=== PATIENT | female | born 1980 | race Caucasian/White ===

== ENCOUNTER 2019-10-19 11:48 | Observation (INO) ==
[2019-10-19] MEDS ORDERED: ONDANSETRON INJ 2 MG/ML 2 ML VIAL ONE (12:56)
[2019-10-19 13:00] LABS: Basophils # (auto) 0.03 K/uL (0-0.2); Basophils % (auto) 0.2 %; Eosinophils # (auto) 0.13 K/uL (0-0.5); Eosinophils % (auto) 1.1 %; Hematocrit (blood only) 41.3 % (37-47); Hemoglobin 13.9 g/dL (12.0-16.0); Immature Granulocytes # (auto) 0.03 K/uL (0.00-0.02); Immature Granulocytes % (auto) 0.2 %; Lymphocytes # (auto) 2.24 K/uL (1.2-3.4); Lymphocytes % (auto) 18.6 %; Mean Corpuscular Hemoglobin 29.6 pg (25-34); Mean Corpuscular Hgb Conc 33.7 g/dL (32-36); Mean Corpuscular Volume 87.9 fL (80-100); Mean Platelet Volume 9.3 fL (7.4-10.4); Monocytes # (auto) 0.83 K/uL (0.11-0.59); Monocytes % (auto) 6.9 %; Neutrophils # (auto) 8.76 K/uL (1.4-6.5); Platelet Count 298 K/uL (130-400); RDW Coefficient of Variation 12.3 % (11.5-14.5); RDW Standard Deviation 39.4 fL (36.4-46.3); White Blood Count 12.02 K/uL (4.8-10.8)
[2019-10-19 13:08] LABS: Appearance Urine Clear (Clear); Bilirubin Urine Negative (Negative); Blood Urine Negative (Negative); Color Urine Dark Yellow; Glucose Urine UA Negative (Negative); Ketones Urine Negative (Negative); Leukocyte Esterase Urine Negative (Negative); Nitrite Urine Negative (Negative); Protein Urine Negative (Negative); Specific Gravity Urine 1.019 (1.000-1.030); Urobilinogen Urine Negative (Negative)
[2019-10-19 13:11] LABS: Partial Thromboplastin Ratio 0.9; Partial Thromboplastin Time 23.5 Seconds (21.0-31.0); Prothrombin Time 10.3 Seconds (9.0-12.0)
[2019-10-19 13:16] LABS: Albumin Level 4.1 gm/dl (3.4-5.0); BUN Creatinine Ratio 13.5 (10-20); Calcium 9.5 mg/dl (8.5-10.1); Creatinine Clr Calc Pharmacy 94.9 ml/min; Est GFR (African American) 110.2; Est GFR (Non-African American) 95.1; Potassium 3.8 mmol/L (3.5-5.1)
[2019-10-19 13:21] LABS: Albumin Globulin Ratio 1.1 (0.9-2); Globulin 3.8 gm/dl (2.5-4.0); Total Protein 7.9 gm/dl (6.4-8.2); Troponin I 0.026 ng/ml (0-0.045)
--- NOTE | 2019-10-19 13:32 | Ultrasound Report ---
LEFT LOWER EXTREMITY VENOUS DOPPLER CLINICAL HISTORY: Left lower extremity pain. History of ablation/sclerotherapy. COMPARISON STUDY: No previous studies for comparison. TECHNIQUE: Sonography of the deep venous system of the left lower extremity was performed. Compressi on and augmentation were evaluated. FINDINGS: The left common femoral, superficial femoral and popliteal veins were compressible. Augmen tation was normal. Flow was shown within the deep calf vessels. Note is made of a thrombosed superfic ial vein within the left calf. IMPRESSION: 1. No evidence of deep venous thrombus within the left lower extremity. 2. Thrombosed superficial vein within the left calf which is likely postprocedural. ACT 112: Negative or not required by law. Electronically signed by: Alistair Owens M.D. 10/19/2019 1:30 PM
[2019-10-19] MEDS ORDERED: IOVERSOL 100ml IV PRN (13:36)
--- NOTE | 2019-10-19 13:47 | CT Scan Report ---
CT ANGIOGRAPHY OF THE CHEST, PULMONARY EMBOLUS PROTOCOL CLINICAL HISTORY: Back pain. Chest tightness. Evaluate for pulmonary embolus. COMPARISON STUDY: No previous studies for comparison. TECHNIQUE: Following IV administration of 83 mL of Optiray-320, helical axial images of the chest wer e obtained utilizing the pulmonary embolus protocol. Maximal intensity projections and sagittal and coronal reformats were viewed on an independent 3D workstation. IV contrast was administered without complication. Automated exposure control was utilized for the study. A dose lowering technique was utilized adhering to the principles of ALARA. CT DOSE: 315.67 mGy.cm FINDINGS: No pulmonary emboli are identified. There is no thoracic aortic dissection. The size of th e heart is normal. There is no pericardial effusion. No enlarged thoracic lymph nodes are noted. Cent ral airways are patent. No pneumothorax or pleural effusion is noted. There are no pulmonary nodules. Mild subpleural groundglass opacities represent atelectasis. Bony thorax is unremarkable. Gallbladde r is surgically absent. Upper abdomen is unremarkable. IMPRESSION: 1. No pulmonary emboli identified. 2. No acute findings within the chest. ACT 112: Negative or not required by law. Electronically signed by: Alistair Owens M.D. 10/19/2019 1:46 PM
[2019-10-19] MEDS ORDERED: ASPIRIN 81 MG CHEW PO STA (13:56)
[2019-10-19] MEDS ORDERED: NITROGLYCERIN 2% OINTMENT 30GM TUBE EXT ONE (13:56)
--- NOTE | 2019-10-19 15:13 | XRay Report ---
XR shoulder LT min 2V routine, XR shoulder RT min 2V routine CLINICAL HISTORY: pain with movements COMPARISON STUDY: None. FINDINGS: No fracture or dislocation. The clavicles are intact. Soft tissues are unremarkable. Mild j oint space narrowing at the right acromioclavicular joint. The left AC joint is well aligned. IMPRESSION: 1. No fractures within the right or left shoulder. 2. Mild joint space narrowing at the right acromioclavicular joint. This favors mild degenerative fausto nge. ACT 112: Negative or not required by law. Electronically signed by: Mario German M.D. 10/19/2019 3:12 PM
--- NOTE | 2019-10-19 15:14 | XRay Report ---
XR cervical spine 2 or 3V CLINICAL HISTORY: 39 years-old Female presenting with right shoulder pain, neck pain, numbness travel ing radiating down the left arm. TECHNIQUE: Lateral, frontal, and open mouth odontoid views of the cervical spine were obtained. COMPARISON: None. FINDINGS: Straightening of normal cervical lordosis. Vertebral bodies maintain normal height and alignment. The C7 vertebral body is fully visualized. Mild intervertebral disc height loss at C6-7, where there is a disc osteophyte complex with mild posterior spondylitic spurring. Normal predental interval. No rad iographic evidence of fracture or subluxation. No prevertebral soft tissue swelling. No significant u ncovertebral hypertrophy. Lateral masses of C1 articulate normally with C2. The dens is grossly intac t. IMPRESSION: 1. Focal degenerative changes at C6-7. 2. No radiographic evidence of acute osseous injury. ACT 112: Negative or not required by law. Electronically signed by: Gurpreet Ansari M.D. 10/19/2019 3:12 PM
[2019-10-19 15:25] LABS: C Reactive Protein < 0.29 mg/dl (0-0.29); NT Pro B Type Natriuretic Pept 48 pg/ml (0-450)
--- NOTE | 2019-10-19 15:25 | History & Physical Report ---
Date of Service October 19, 2019 Assessment & Plan (1) Chest pain: Admit to PCU on telemetry for observation. Vital signs every 4 hours Troponins x3 with EKG to rule out acute coronary syndrome. BNP, TSH, magnesium pending. Replenish electrolytes DVT prophylaxis Lovenox 40 mg subcu 2 daily Full code (2) Osteoarthritis: Cannot exclude osteoarthritis of the neck versus right versus left shoulder as a cause of pain. Spondylosis of the spine cannot be excluded. 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 Less likely carpal tunnel syndrome. X-rays of the neck, right shoulder left shoulder pending. CRP pending Pain management with Toradol 15mg IV every 6 hours as needed for pain. Percocet 5/325 mg every 4 hours as needed for pain. Baclofen 10 mg 3 times daily as needed for muscle spasm. Present on Admission?: Yes (3) Hypertension: Blood pressure is well controlled in the ER. Continue home medicine amlodipine 5 mg p.o. every afternoon, Bystolic 10 mg p.o. every afternoon. Continue monitoring every 4 hours Present on Admission?: Yes (4) Hyperlipidemia: Lipid panel pending. Continue home dose of atorvastatin 40 mg p.o. every afternoon. Present on Admission?: Yes (5) Obesity (BMI 30.0-34.9): Patient advised to lose at least 32 pounds pounds in order to be below overweight line for her BMI. Patient advised to start healthy diet, exercises, dietary consulted, should join groups or weight watchers to help her to control her weight and to lose some. Present on Admission?: Yes (6) Varicose vein of leg: Appears to be stable at this time. No intervention needed. Present on Admission?: Yes (7) Metabolic syndrome: As discussed above. A1c and lipid panel pending. Present on Admission?: Yes (8) Anxiety: Appears to be stable. Continue home dose of escitalopram 10 mg p.o. daily, bupropion 300 mg p.o. daily. Present on Admission?: Yes History of Present Illness Chief Complaint: Atypical chest pain Primary Care Provider: NO PCP Patient is a 39 years old female with a past medical history of hypertension, hyperlipidemia, anxiety who presents to the emergency room with a complaint of chest pain that woke her up from sleep last night and it started at her right shoulder extended to her left shoulder and then ended up between 2 blades and her left hand was numb. Patient said that pain was worsening and continued for 30 minutes. Patient said pain recovered and she felt fine after that. Patient did not try anything to relieve her pain. This morning patient came to the emergency room to be checked. Patient reports that she had thrombosis palliative therapy of the superficial veins of the left lower extremity approximately 1 week ago and she was worried that this could be associated with it. Patient reports tolerating procedure well. She reports some bruising of the left lower extremities at the medial aspect. Patient denies fever, chills, abdominal pain, frequency, urgency, hematuria, dysuria, syncope or near syncope. Labs are reviewed: WBC is 12.02, hemoglobin 13.9, hematocrit 41.3, platelets 298. PT 10.3, INR 1, APTT 23.5, sodium 140, potassium 3.8, chloride 108, BUN 11, creatinine 0.78, GFR 95.1, calcium 9.5 AST 15, ALT 42 troponin 0.026, urine analysis negative, urine test negative. Her CTA of the chest: No pulmonary emboli identified, no acute findings within the chest, no pericardial effusion, no pulmonary nodules. Mild subpleural groundglass opacity may represent atelectasis. DVT ultrasound shows no evidence of deep venous thrombosis DVT in the left lower extremity. Thrombosed superficial veins within the left calf which is likely postsurgical. Decision was made to admit patient for observation at PCU on telemetry and further evaluation of acute versus atypical chest pain versus acute coronary syndrome. Allergies Allergy/AdvReac Type Severity Reaction Status Date / Time No Known Allergies Allergy Unverified 10/19/19 14:06 Home Medications Home Medications Medication Instructions Recorded Confirmed Type amlodipine 5 mg PO QPM 10/19/19 10/19/19 History atorvastatin 40 mg PO QPM 10/19/19 10/19/19 History bupropion HCl 300 mg PO DAILY 10/19/19 10/19/19 History cyanocobalamin (vitamin B-12) 1,000 mcg IM MONTHLY 10/19/19 10/19/19 History escitalopram oxalate 10 mg PO DAILY 10/19/19 10/19/19 History ibuprofen [Advil] 400 mg PO Q6H PRN 10/19/19 10/19/19 History nebivolol [Bystolic] 10 mg PO QPM 10/19/19 10/19/19 History Past Med/Surg History Medical History Anxiety Varicose vein of leg Family History Father Coronary heart disease Social History Preferred Language: Turkmen Communication Ability: Effective Manager Strategic Required: No Beliefs That Will Affect Care: None Current Living Situation: Spouse Other Information That Helps Us Care for You: No Feels Safe at Home: Yes Safety Concerns: Feels Safe At This Time Smoking Status: Never smoker Do You Dip or Chew Tobacco: No ; Second Hand Exposure: No ; Tobacco Cessation Education Requested by Patient: No Hx Alcohol Use: Yes Hx Substance Use: No Review of Systems Review of Systems: All systems reviewed & are unremarkable except as noted in HPI & below Physical Exam Constitutional: WD/WN, vitals as above well developed and + obese Eyes: PERRL, conjunctivae normal, anicteric sclerae ENMT: external ear and nose normal, oropharynx normal Neck: trachea midline, no thyromegaly Positive tenderness and pain over the right trapezius. Patient has painful trigger points bilateral left and right down to the neck more pronounced on the right. Respiratory: normal respiratory effort, lungs clear to auscultation Cardiovascular: RRR, no murmur, no edema Gastrointestinal (Abdomen): normal bowel sounds, soft, nontender, no hepatosplenomegaly Musculoskeletal: no cyanosis or clubbing, extremities motor strength 5/5 Patient has trigger points especially right side and the back of the neck. Skin: no rashes, warm and dry Bruising over the left lower extremity below the calf on the medial side where patient had sclerotherapy. Neurologic: patellar DTR's 2+ bilat, sensation intact Psychiatric: A+Ox3, euthymic affect Lymphatic: no cervical or axillary lymphadenopathy Results & Data Vital Signs (Past 12 Hours) Vital Signs Temp Pulse Resp BP Pulse Ox 10/19/19 14:31 61 19 94 10/19/19 14:30 60 12 118/82 94 10/19/19 14:01 71 25 H 97 10/19/19 14:00 72 20 126/76 97 12/20/19 13:38 77 15 10/19/19 12:49 66 17 124/79 96 10/19/19 12:30 74 20 10/19/19 12:29 88 30 H 10/19/19 12:21 81 17 124/71 97 10/19/19 12:18 99 10/19/19 12:05 36.7 C 70 20 141/92 H 98 Code Status & VTE Plan Code Status Full code VTE Prophylaxis Plan VTE Prophylaxis will be ordered: Yes PG Care Time/CCT Total # of Minutes Spent Total Time Spent with Patient: Total time spent is greater than 50% in coordination of care (as documented) at patient's floor/unit and/or counseling patient:
[2019-10-19] MEDS ORDERED: ALUMINUM/MAGNESIUM SUSP 30 ML UDC PO PRN (15:36)
[2019-10-19] MEDS ORDERED: OXYCODONE/ACETAMINOPHEN 5mg/325mg TAB PO PRN (15:36)
[2019-10-19] MEDS ORDERED: POLYETHYLENE (MIRALAX) 17 GM PACK PO PRN (15:36)
[2019-10-19] MEDS ORDERED: KETOROLAC TROMETHAMINE 15 MG/ML VIAL IV PRN (15:36)
[2019-10-19] MEDS ORDERED: ACETAMINOPHEN 325 MG TAB PO PRN (15:36)
[2019-10-19] MEDS ORDERED: ONDANSETRON INJ 2 MG/ML 2 ML VIAL IV PRN (15:36)
[2019-10-19] MEDS ORDERED: BACLOFEN 10 MG TAB PO PRN (15:36)
[2019-10-19] MEDS ORDERED: MAGNESIUM HYDROXIDE SUSP 30 ML UDC PO PRN (15:36)
--- NOTE | 2019-10-19 17:22 | Emergency Department Note ---
Entered by Devon Murphy acting as a scribe for History of Present Illness General Chief complaint: Shoulder Pain Stated complaint: BACK PAIN Time Seen by Provider: 10/19/19 12:20 Source: patient Limitations: no limitations History of Present Illness Onset (ago): hour(s) (0500) Location: back Severity: severe Pain Consistency: + now resolved Maximum Pain Intensity: 1 Quality: + other (chest tightness) Associated symptoms: + denies other symptoms (abdominal pain, cold symptoms, ), + nausea/vomiting (vomiting), + shortness of breath and + other (chest tightness, swollen left leg, ); no fever/chills (fever) The patient is a 39 year old female who presents to the Emergency Room with complaints of now-resolved and sharp back pain starting at 0500. She states the severe pain started at her shoulders and went across her back and woke her up. She notes she vomited. She states she was out of breath. She states the pain lasted 30 minutes. She states she has a little chest tightness right now. She notes she still feels out of breath. She does state that she has had some chest pain in the past from anxiety but is not sure if this is what is causing it. She notes she never had today's pain before. She states her left leg swelled up. She did recently have sclerotherapy for her varicose veins in her left leg on Tuesday. She notes she does not have any problems with her right leg. She states she drove to [place] from [place], which is a 4 hour trip, recently. She states she has high blood pressure and high cholesterol. She states she has never had a clot in her legs or lungs before. The patient denies smoking, having diabetes, fevers, cold symptoms, abdominal pain, and being . She states heart disease runs in her family and notes her father had heart disease when he was in his 60s. She states she had a Mirena IUD placed 2 years ago. Home Medications Home Medications Medication Instructions Recorded Confirmed Type amlodipine 5 mg PO QPM 10/19/19 10/19/19 History atorvastatin 40 mg PO QPM 10/19/19 10/19/19 History bupropion HCl 300 mg PO DAILY 10/19/19 10/19/19 History cyanocobalamin (vitamin B-12) 1,000 mcg IM MONTHLY 10/19/19 10/19/19 History escitalopram oxalate 10 mg PO DAILY 10/19/19 10/19/19 History ibuprofen [Advil] 400 mg PO Q6H PRN 10/19/19 10/19/19 History nebivolol [Bystolic] 10 mg PO QPM 10/19/19 10/19/19 History Allergies Allergy/AdvReac Type Severity Reaction Status Date / Time No Known Allergies Allergy Unverified 10/19/19 14:06 Past Med/Surg History Medical History Anxiety Varicose vein of leg Family History Father Coronary heart disease Social History Preferred Language: Italian Communication Ability: Effective 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 and A total of 10 systems reviewed and were otherwise negative Physical Exam Vital Signs Vital Signs - 24 hr 10/19/19 12:05 10/19/19 12:18 10/19/19 12:21 Temperature 36.7 C Temperature Source Oral Pulse Rate 70 81 Pulse Rate from SpO2 Sensor 81 Respiratory Rate 20 17 Blood Pressure 141/92 H 124/71 Blood Pressure Mean 108 95 Pulse Oximetry 98 99 97 Oxygen Delivery Method Room Air Room Air Room Air Sepsis Recent Fever Within 48 Hours No Sepsis New/Unexplained Change in Mental Status No Sepsis Action Taken by Nursing No Action Required 10/19/19 12:29 10/19/19 12:30 10/19/19 12:49 Temperature Temperature Source Pulse Rate 88 74 66 Pulse Rate from SpO2 Sensor 66 Respiratory Rate 30 H 20 17 Blood Pressure 124/79 Blood Pressure Mean 85 Pulse Oximetry 96 Oxygen Delivery Method Room Air Sepsis Recent Fever Within 48 Hours Sepsis New/Unexplained Change in Mental Status Sepsis Action Taken by Nursing 10/19/19 13:38 10/19/19 14:00 10/19/19 14:01 Temperature Temperature Source Pulse Rate 77 72 71 Pulse Rate from SpO2 Sensor 73 72 Respiratory Rate 15 20 25 H Blood Pressure 126/76 Blood Pressure Mean 86 Pulse Oximetry 97 97 Oxygen Delivery Method Room Air Room Air Sepsis Recent Fever Within 48 Hours Sepsis New/Unexplained Change in Mental Status Sepsis Action Taken by Nursing 10/19/19 14:30 10/19/19 14:31 Temperature Temperature Source Pulse Rate 60 61 Pulse Rate from SpO2 Sensor 62 61 Respiratory Rate 12 19 Blood Pressure 118/82 Blood Pressure Mean 89 Pulse Oximetry 94 94 Oxygen Delivery Method Room Air Room Air Sepsis Recent Fever Within 48 Hours Sepsis New/Unexplained Change in Mental Status Sepsis Action Taken by Nursing Constitutional: Vital signs reviewed. Eyes: Pupils are equal round reactive to light. Conjunctiva are noninjected. ENT: Pharynx is clear without erythema or exudate. Mucous membranes are moist. Neck supple without meningeal signs. Respiratory: Clear to auscultation bilaterally. Breath sounds are equal bilaterally. Cardiovascular: Regular rate and rhythm. No rubs or gallops. GI: Soft, nondistended and nontender. Bowel sounds are present. Musculoskeletal: No peripheral edema. Mild left calf tenderness. Integumentary: No cyanosis. Neurological: The patient is awake and alert. No focal deficits. Psychiatric: Normal affect. Course Course 1224: The patient was evaluated in room C2B, and a complete history and physical examination were performed. 1353: I reevaluated the patient. I discussed her test results with her. She states she is still having chest tightness. She agrees to being hospitalized. 1405: I spoke Dr. Wilson - [facility] Physician. She will further manage the care of the patient. 1430: I reevaluated the patient. Her chest pain is better and Dr. Wilson saw the patient. Administered Medications Enoxaparin Sodium (Lovenox) 40 mg SQ Q24H [facility] Stop: 11/18/19 20:59 Last Admin: 10/19/19 16:43 Dose: 40 mg Documented by: [id number] Ketorolac Tromethamine (Toradol) 15 mg IV Q6H PRN PRN Reason: Pain Stop: 10/24/19 15:35 Last Admin: 10/19/19 16:33 Dose: 15 mg Documented by: [id number] Discontinued Medications Aspirin (Aspirin Chew) 162 mg PO NOW STA Stop: 10/19/19 13:57 Last Admin: 10/19/19 14:06 Dose: 162 mg Documented by: [id number] Ioversol (Optiray 320 100ml) 83 ml IV ONCE PRN PRN Reason: Interaction Checking Stop: 10/23/19 13:35 Last Admin: 10/19/19 13:37 Dose: 83 ml Documented by: [id number] Nitroglycerin (Nitro-Bid 2%) 0.5 inch EXT NOW ONE Stop: 10/19/19 13:57 Last Admin: 10/19/19 14:06 Dose: 0.5 inch Documented by: [id number] Ondansetron HCl (Zofran) Confirm Administered Dose 4 mg .ROUTE .STK-MED ONE Stop: 10/19/19 12:57 Last Admin: 10/19/19 12:58 Dose: 4 mg Documented by: [id number] Medical Decision Making Differential Diagnosis Differential Diagnosis includes but is not limited to PE, DVT, unstable angina, IA, and pneumothorax. Medical Records Attestation: I reviewed the patient's medical records. I did perform a limited focused review of portions of the patient's old chart on the electronic medical record. The patient has had no recent pertinent visits to this hospital. Home Medications Current Medication List: was personally reviewed by me Laboratory Data Attestation: I reviewed the patient's lab results. Result diagrams: 10/19/19 12:47 10/19/19 12:47 Lab Results 10/19/19 10/19/19 10/19/19 Range/Units 12:41 12:41 12:47 WBC (4.8-10.8) K/uL RBC (4.2-5.4) M/uL Hgb (12.0-16.0) g/dL Hct (37-47) % MCV (80-100) fL MCH (25-34) pg MCHC (32-36) g/dL RDW Std Deviation (36.4-46.3) fL RDW Coeff of Christine (11.5-14.5) % Plt Count (130-400) K/uL MPV (7.4-10.4) fL Immature Gran % (Auto) % Neut % (Auto) % Lymph % (Auto) % Avery % (Auto) % Eos % (Auto) % Baso % (Auto) % Immature Gran # (Auto) (0.00-0.02) K/uL Neut # (Auto) (1.4-6.5) K/uL Lymph # (Auto) (1.2-3.4) K/uL Avery # (Auto) (0.11-0.59) K/uL Eos # (Auto) (0-0.5) K/uL Baso # (Auto) (0-0.2) K/uL PT (9.0-12.0) Seconds INR (0.9-1.1) APTT (21.0-31.0) Seconds PTT Ratio Sodium 140 (136-145) mmol/L Potassium 3.8 (3.5-5.1) mmol/L Chloride 108 H (98-107) mmol/L Carbon Dioxide 27 (21-32) mmol/L Anion Gap 5.0 (3-11) BUN 11 (7-18) mg/dl Creatinine 0.78 (0.6-1.2) mg/dl Est Cr Clr Drug Dosing 94.9 ml/min Est GFR ( Amer) 110.2 Est GFR (Non-Af Amer) 95.1 BUN/Creatinine Ratio 13.5 (10-20) Glucose 94 (70-99) mg/dl Calcium 9.5 (8.5-10.1) mg/dl Total Bilirubin 1.0 (0.2-1) mg/dl AST 15 (15-37) U/L ALT 42 (12-78) U/L Alkaline Phosphatase 112 (45-117) U/L Troponin I 0.026 (0-0.045) ng/ml C-Reactive Protein (0-0.29) mg/dl NT-Pro-B Natriuret Pep (0-450) pg/ml Total Protein 7.9 (6.4-8.2) gm/dl Albumin 4.1 (3.4-5.0) gm/dl Globulin 3.8 (2.5-4.0) gm/dl Albumin/Globulin Ratio 1.1 (0.9-2) Urine Color Dark Yellow Urine Appearance Clear (Clear) Urine pH 5.0 (4.5-7.5) Ur Specific [place] 1.019 (1.000-1.030) Urine Protein Negative (Negative) Urine Glucose (UA) Negative (Negative) Urine Ketones Negative (Negative) Urine Blood Negative (Negative) Urine Nitrite Negative (Negative) Urine Bilirubin Negative (Negative) Urine Urobilinogen Negative (Negative) Ur Leukocyte Esterase Negative (Negative) POC Ur Test NEG (NEG) 10/19/19 10/19/19 10/19/19 Range/Units 12:47 12:47 12:47 WBC 12.02 H (4.8-10.8) K/uL RBC 4.70 (4.2-5.4) M/uL Hgb 13.9 (12.0-16.0) g/dL Hct 41.3 (37-47) % MCV 87.9 (80-100) fL MCH 29.6 (25-34) pg MCHC 33.7 (32-36) g/dL RDW Std Deviation 39.4 (36.4-46.3) fL RDW Coeff of Christine 12.3 (11.5-14.5) % Plt Count 298 (130-400) K/uL MPV 9.3 (7.4-10.4) fL Immature Gran % (Auto) 0.2 % Neut % (Auto) 73.0 % Lymph % (Auto) 18.6 % Avery % (Auto) 6.9 % Eos % (Auto) 1.1 % Baso % (Auto) 0.2 % Immature Gran # (Auto) 0.03 H (0.00-0.02) K/uL Neut # (Auto) 8.76 H (1.4-6.5) K/uL Lymph # (Auto) 2.24 (1.2-3.4) K/uL Avery # (Auto) 0.83 H (0.11-0.59) K/uL Eos # (Auto) 0.13 (0-0.5) K/uL Baso # (Auto) 0.03 (0-0.2) K/uL PT 10.3 (9.0-12.0) Seconds INR 1.0 (0.9-1.1) APTT 23.5 (21.0-31.0) Seconds PTT Ratio 0.9 Sodium (136-145) mmol/L Potassium (3.5-5.1) mmol/L Chloride (98-107) mmol/L Carbon Dioxide (21-32) mmol/L Anion Gap (3-11) BUN (7-18) mg/dl Creatinine (0.6-1.2) mg/dl Est Cr Clr Drug Dosing ml/min Est GFR ( Amer) Est GFR (Non-Af Amer) BUN/Creatinine Ratio (10-20) Glucose (70-99) mg/dl Calcium (8.5-10.1) mg/dl Total Bilirubin (0.2-1) mg/dl AST (15-37) U/L ALT (12-78) U/L Alkaline Phosphatase (45-117) U/L Troponin I (0-0.045) ng/ml C-Reactive Protein < 0.29 (0-0.29) mg/dl NT-Pro-B Natriuret Pep 48 (0-450) pg/ml Total Protein (6.4-8.2) gm/dl Albumin (3.4-5.0) gm/dl Globulin (2.5-4.0) gm/dl Albumin/Globulin Ratio (0.9-2) Urine Color Urine Appearance (Clear) Urine pH (4.5-7.5) Ur Specific [place] (1.000-1.030) Urine Protein (Negative) Urine Glucose (UA) (Negative) Urine Ketones (Negative) Urine Blood (Negative) Urine Nitrite (Negative) Urine Bilirubin (Negative) Urine Urobilinogen (Negative) Ur Leukocyte Esterase (Negative) POC Ur Test (NEG) Imaging Data Radiologist's Impression: Radiology results as stated below per my review and the radiologist's interpretation: CT ANGIOGRAPHY OF THE CHEST, PULMONARY EMBOLUS PROTOCOL CLINICAL HISTORY: Back pain. Chest tightness. Evaluate for pulmonary embolus. COMPARISON STUDY: No previous studies for comparison. TECHNIQUE: Following IV administration of 83 mL of Optiray-320, helical axial images of the chest were obtained utilizing the pulmonary embolus protocol. Maximal intensity projections and sagittal and coronal reformats were viewed on an independent 3D workstation. IV contrast was administered without complication. Automated exposure control was utilized for the study. A dose lowering technique was utilized adhering to the principles of ALARA. CT DOSE: 315.67 mGy.cm FINDINGS: No pulmonary emboli are identified. There is no thoracic aortic d issection. The size of the heart is normal. There is no pericardial effusion. No enlarged thoracic lymph nodes are noted. Central airways are patent. No pneumothorax or pleural effusion is noted. There are no pulmonary nodules. Mild subpleural groundglass opacities represent atelectasis. Bony thorax is unremarkable. Gallbladder is surgically absent. Upper abdomen is unremarkable. IMPRESSION: 1. No pulmonary emboli identified. 2. No acute findings within the chest. ACT 112: Negative or not required by law. Electronically signed by: Alistair Owens M.D. 10/19/2019 1:46 PM LEFT LOWER EXTREMITY VENOUS DOPPLER CLINICAL HISTORY: Left lower extremity pain. History of ablation/sclerotherapy. COMPARISON STUDY: No previous studies for comparison. TECHNIQUE: Sonography of the deep venous system of the left lower extremity was performed. Compression and augmentation were evaluated. FINDINGS: The left common femoral, superficial femoral and popliteal veins were compressible. Augmentation was normal. Flow was shown within the deep calf vessels. Note is made of a thrombosed superficial vein within the left calf. IMPRESSION: 1. No evidence of deep venous thrombus within the left lower extremity. 2. Thrombosed superficial vein within the left calf which is likely postprocedural. ACT 112: Negative or not required by law. Electronically signed by: Alistair Owens M.D. 10/19/2019 1:30 PM ECG Data Attestation: I personally reviewed and interpreted this ECG as follows: Indication: + other (upper back pain) Rate (beats per minute): 73 Rhythm: + normal sinus ECG ST segments: no ST elevation ECG Findings: + Other (Biphasic T waves in anterior leads); no PVCs Comparison ECG Date: no prior available Blood Pressure Blood Pressure Findings: Normal blood pressure Blood Pressure Disposition: further management by hospitalist BROOKS Alvarez I did evaluate the patient as noted above. The patient is presenting with sudden onset of upper back pain and chest pain. The back pain is gone but she has continued chest tightness. She does have several risk factors for DVT and PE. She recently drove up from [place] for prolonged period this time as well as has a history of recent sclerotherapy for her left leg. She has pain to her calf. She also has a Mirena IUD. IV access was established. The patient was placed on a continuous cardiac cath lab technologist. I did order and personally review the patient's 12-lead EKG as described above. Her twelve-lead EKG demonstrates some T wave abnormalities in the anterior leads. No old EKG was available for comparison. I did order and review the patient's blood work as noted in the electronic medical record. She has a white count of 12. She is not anemic. Troponin is negative. Electrolytes are unremarkable. I did order a CT angiogram of the chest. I did review the images myself as well as the radiology report as described above. She has no evidence of PE. I did order an ultrasound of the left leg and she has no DVT but she does have a thrombosed superficial vein in the left calf. I did discuss the test results with the patient. She is still having some chest pain and so I did treat her with aspirin as well as nitroglycerin paste. I did recommend hospitalization for further evaluation of her symptoms including repeat cardiac biomarkers. She was agreeable and I did discuss the case with the hospitalist and porter sample case. On reevaluation her chest pain is gone. Impression & Plan Acute chest pain, Back pain, thoracic, Acute superficial venous thrombosis of left lower extremity, Abnormal EKG Discharge Plan Visit Data *Final* Discharge Date/Time: 10/19/19 15:15 Chief Complaint: Shoulder Pain Stated Complaint: BACK PAIN ED Provider: Octavio Lujan Discharge Problem: Acute chest pain, Back pain, thoracic, Acute superficial venous thrombosis of left lower extremity, Abnormal EKG Patient Disposition: Admitted As Inpatient Discharge Instructions Interventions: ED Discharge Assessment Last Done: 10/19/19 15:15 Discharge Problem: Back pain, thoracic Qualifiers: Chronicity: unspecified Back pain laterality: unspecified Qualified Code(s): M54.6 - Pain in thoracic spine The yemi's documentation has been prepared under my direction and personally reviewed by me in its entirety. I confirm that the note above accurately reflects all work, treatment, procedures, and medical decision making performed by me.
[2019-10-19] MEDS ORDERED: AMLODIPINE BESYLATE 5 MG TAB PO SCH (21:00)
[2019-10-19] MEDS ORDERED: ENOXAPARIN INJ 40 MG/0.4 ML SYR SQ SCH (21:00)
[2019-10-19] MEDS ORDERED: ATORVASTATIN 40 MG TAB PO SCH (21:00)
[2019-10-19] MEDS ORDERED: NEBIVOLOL HCL 5 MG TAB PO SCH (21:00)
[2019-10-19] MEDS ORDERED: MoRPHine SULFATE 2 MG/ML CARP IV PRN (21:17)
[2019-10-20] MEDS ORDERED: LORazepam 1 MG/2 ML VIAL IV STA (00:21)
[2019-10-20 07:23] LABS: Basophils # (auto) 0.02 K/uL (0-0.2); Basophils % (auto) 0.3 %; Eosinophils # (auto) 0.17 K/uL (0-0.5); Eosinophils % (auto) 2.2 %; Hematocrit (blood only) 39.1 % (37-47); Immature Granulocytes # (auto) 0.02 K/uL (0.00-0.02); Immature Granulocytes % (auto) 0.3 %; Lymphocytes # (auto) 2.41 K/uL (1.2-3.4); Lymphocytes % (auto) 31.1 %; Mean Corpuscular Hemoglobin 29.3 pg (25-34); Mean Corpuscular Hgb Conc 33.2 g/dL (32-36); Mean Corpuscular Volume 88.3 fL (80-100); Mean Platelet Volume 9.4 fL (7.4-10.4); Monocytes % (auto) 7.7 %; Neutrophils # (auto) 4.54 K/uL (1.4-6.5); Neutrophils % (auto) 58.4 %; Platelet Count 244 K/uL (130-400); RDW Coefficient of Variation 12.4 % (11.5-14.5); RDW Standard Deviation 39.9 fL (36.4-46.3); Red Blood Count 4.43 M/uL (4.2-5.4); White Blood Count 7.76 K/uL (4.8-10.8)
[2019-10-20 07:56] LABS: Albumin Level 3.4 gm/dl (3.4-5.0); BUN Creatinine Ratio 19.5 (10-20); Calcium 8.3 mg/dl (8.5-10.1); Creatinine Clr Calc Pharmacy 92.3 ml/min; Est GFR (African American) 106.9; Est GFR (Non-African American) 92.2; Potassium 3.6 mmol/L (3.5-5.1)
[2019-10-20 08:07] LABS: Albumin Globulin Ratio 0.9 (0.9-2); Bilirubin,Total 1.2 mg/dl (0.2-1); Globulin 3.6 gm/dl (2.5-4.0); Thyroid Stimulating Hormone 1.91 uIu/ml (0.300-4.500)
[2019-10-20 08:09] LABS: Estimated Average Glucose 103 mg/dl; Hemoglobin A1C 5.2 % (4.5-5.6)
[2019-10-20] MEDS ORDERED: ESCITALOPRAM OXALATE 10 MG TAB PO SCH (09:00)
[2019-10-20] MEDS ORDERED: BuPROPion XL 300 MG TABCR PO SCH (09:00)
--- NOTE | 2019-10-20 12:19 | Cardiology Consultation ---
Date of Consultation October 20, 2019 Assessment & Plan (1) Chest pain: (2) Hypertension: (3) Back pain, thoracic: ASSESSMENT/PLAN: 1. Atypical chest pain: Her chest pain is not consistent with ischemic heart disease. She has had pain for many hours consistently with negative troponins, without ECG or echo abnormalities to suggest acute ischemia. She has had stress echo earlier this year by her primary valve and regulator repairer for similar symptoms, and she reports that it was unremarkable. Her chest discomfort resolved with Ativan and in the past, she was told that her chest pain was due to anxiety. Further evaluation/treatment as per primary service. 2. Hypertension: Blood pressure adequately controlled. Can continue home medications. 3. Back pain: Etiology uncertain. Workup as per primary service. 4. Disposition: From a cardiac perspective, no further inpatient evaluation is recommended at this time. She can follow up with her primary valve and regulator repairer in [place]. Patient care discussed with Dr. Puentes, primary hospitalist. Thank you for allowing me to participate in the care of your patient. Please call for any other questions or concerns. Sincerely, Michael Bowman M.D. History of Present Illness Reason for Consultation: Chest pain Requesting Physician: Darinel Puentes Attending Physician: Darinel Puentes History of Present Illness Mrs. Nice is a very pleasant 39-year-old female with a history significant for hypertension and dyslipidemia who presented to [facility] for back and chest pain. She is visiting from [place] as her father this past Tuesday. She is staying at her mother's house with her . At approximately 4:00 a.m. she woke up and while laying in bed noticed that she had upper back pain from shoulder to shoulder with left arm numbness. She went to the restroom and vomited. Symptoms persisted for 30 minutes or more. Her mother gave her 2 aspirin and she went back to bed. When she woke up in the morning, she had central chest discomfort described as a pressure. There was no radiation of the pain. She denies shortness of breath. The pain persisted for 4-5 hours and then returned again last night briefly. She has had the pain throughout this morning as well. The pain resolved last evening after she received Ativan. She admits that she has had this chest pain in the past, occurring intermittently over time. She had a stress test in 2018 for the symptoms which was reportedly negative. Stress testing was done by her primary valve and regulator repairer near her home. The chest pain has been attributed to anxiety. She takes Xanax typically at home but admits that she ran out, and she is inquiring if she can have some on discharge here. Her stated that she has been very stressed recently, especially with the passing of her father. In August she underwent venous ablation of her left lower extremity. She had been having edema in that leg, which has improved significantly since the procedure. Just 2 weeks ago, she underwent sclerotherapy of her left lower extremity. Review of systems: As above. She also admits to diarrhea which resolved with Imodium. Review of systems otherwise negative/unremarkable. Family history: Maternal grandmother from CAD at the age of 50. Father had CAD and also had exposure to [place]. Social history: She denies tobacco. Rare alcohol. No drugs. She lives in [place] with her . They have 1 son. 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 Her is present at the bedside. Allergies Allergy/AdvReac Type Severity Reaction Status Date / Time No Known Allergies Allergy Unverified 10/19/19 14:06 Home Medications Home Medications Medication Instructions Recorded Confirmed Type amlodipine 5 mg PO QPM 10/19/19 10/19/19 History atorvastatin 40 mg PO QPM 10/19/19 10/19/19 History bupropion HCl 300 mg PO DAILY 10/19/19 10/19/19 History cyanocobalamin (vitamin B-12) 1,000 mcg IM MONTHLY 10/19/19 10/19/19 History escitalopram oxalate 10 mg PO DAILY 10/19/19 10/19/19 History ibuprofen [Advil] 400 mg PO Q6H PRN 10/19/19 10/19/19 History nebivolol [Bystolic] 10 mg PO QPM 10/19/19 10/19/19 History Patient History Medical History Anxiety Hyperlipidemia Hypertension Osteoarthritis Varicose vein of leg Family History Father Coronary heart disease Social History Preferred Language: Bruneian Communication Ability: Effective Financial Sales Advisor Required: No Beliefs That Will Affect Care: None Current Living Situation: Spouse Feels Safe at Home: Yes Smoking Status: Never smoker Second Hand Exposure: No ; Hx Alcohol Use: Yes Hx Substance Use: No Physical Exam Physical Exam: Gen.: No acute distress. Alert and oriented. HEENT: Anicteric sclera. Neck: Thick neck, but no appreciable JVD. No bruits. Normal carotid upstrokes bilaterally. Cardiac: PMI was not palpable . No ventricular heave. Regular. Normal S1-S2. No murmurs, rubs, or gallops. Pulmonary: Clear to auscultation bilaterally without wheezes, rales, or rhonchi. Abdomen: Soft, nontender, nondistended, with normoactive bowel sounds. No bruits noted. Extremities: 2+ radial pulses bilaterally. 2+ posterior tibialis pulses bilaterally. No edema or cyanosis. No palpable cords. Psychiatric: Affect appears appropriate. Chest: Nontender to palpation. No rash. No palpable mass in her painful area. Results & Data Vital Signs (Past 12 Hours) Vital Signs Temp Pulse Resp BP Pulse Ox 10/20/19 11:55 36.7 C 66 16 108/70 93 10/20/19 06:51 36.7 C 69 18 103/68 94 10/20/19 03:55 36.3 C L 63 16 106/64 94 Laboratory Results Laboratory Results - last 24 hr 10/19/19 10/19/19 10/19/19 12:41 12:41 12:47 WBC RBC Hgb Hct MCV MCH MCHC RDW Std Deviation RDW Coeff of Christine Plt Count MPV Immature Gran % (Auto) Neut % (Auto) Lymph % (Auto) [place] % (Auto) Eos % (Auto) Baso % (Auto) Immature Gran # (Auto) Neut # (Auto) Lymph # (Auto) [place] # (Auto) Eos # (Auto) Baso # (Auto) PT INR APTT PTT Ratio Sodium 140 Potassium 3.8 Chloride 108 H Carbon Dioxide 27 Anion Gap 5.0 BUN 11 Creatinine 0.78 Est Cr Clr Drug Dosing 94.9 Est GFR ( Amer) 110.2 Est GFR (Non-Af Amer) 95.1 BUN/Creatinine Ratio 13.5 Glucose 94 Estimat Average Glucose Hemoglobin A1c Calcium 9.5 Total Bilirubin 1.0 AST 15 ALT 42 Alkaline Phosphatase 112 Troponin I 0.026 C-Reactive Protein NT-Pro-B Natriuret Pep Total Protein 7.9 Albumin 4.1 Globulin 3.8 Albumin/Globulin Ratio 1.1 Triglycerides Cholesterol LDL Cholesterol, Calc VLDL Cholesterol, Calc HDL Cholesterol Cholesterol/HDL Ratio TSH Urine Color Dark Yellow Urine Appearance Clear Urine pH 5.0 Ur Specific [place] 1.019 Urine Protein Negative Urine Glucose (UA) Negative Urine Ketones Negative Urine Blood Negative Urine Nitrite Negative Urine Bilirubin Negative Urine Urobilinogen Negative Ur Leukocyte Esterase Negative POC Ur Test NEG 10/19/19 10/19/19 10/19/19 12:47 12:47 12:47 WBC 12.02 H RBC 4.70 Hgb 13.9 Hct 41.3 MCV 87.9 MCH 29.6 MCHC 33.7 RDW Std Deviation 39.4 RDW Coeff of Christine 12.3 Plt Count 298 MPV 9.3 Immature Gran % (Auto) 0.2 Neut % (Auto) 73.0 Lymph % (Auto) 18.6 [place] % (Auto) 6.9 Eos % (Auto) 1.1 Baso % (Auto) 0.2 Immature Gran # (Auto) 0.03 H Neut # (Auto) 8.76 H Lymph # (Auto) 2.24 [place] # (Auto) 0.83 H Eos # (Auto) 0.13 Baso # (Auto) 0.03 PT 10.3 INR 1.0 APTT 23.5 PTT Ratio 0.9 Sodium Potassium Chloride Carbon Dioxide Anion Gap BUN Creatinine Est Cr Clr Drug Dosing Est GFR ( Amer) Est GFR (Non-Af Amer) BUN/Creatinine Ratio Glucose Estimat Average Glucose Hemoglobin A1c Calcium Total Bilirubin AST ALT Alkaline Phosphatase Troponin I C-Reactive Protein < 0.29 NT-Pro-B Natriuret Pep 48 Total Protein Albumin Globulin Albumin/Globulin Ratio Triglycerides Cholesterol LDL Cholesterol, Calc VLDL Cholesterol, Calc HDL Cholesterol Cholesterol/HDL Ratio TSH Urine Color Urine Appearance Urine pH Ur Specific [place] Urine Protein Urine Glucose (UA) Urine Ketones Urine Blood Urine Nitrite Urine Bilirubin Urine Urobilinogen Ur Leukocyte Esterase POC Ur Test 10/19/19 10/19/19 10/20/19 15:50 21:26 06:56 WBC 7.76 RBC 4.43 Hgb 13.0 Hct 39.1 MCV 88.3 MCH 29.3 MCHC 33.2 RDW Std Deviation 39.9 RDW Coeff of Christine 12.4 Plt Count 244 MPV 9.4 Immature Gran % (Auto) 0.3 Neut % (Auto) 58.4 Lymph % (Auto) 31.1 [place] % (Auto) 7.7 Eos % (Auto) 2.2 Baso % (Auto) 0.3 Immature Gran # (Auto) 0.02 Neut # (Auto) 4.54 Lymph # (Auto) 2.41 [place] # (Auto) 0.60 H Eos # (Auto) 0.17 Baso # (Auto) 0.02 PT INR APTT PTT Ratio Sodium Potassium Chloride Carbon Dioxide Anion Gap BUN Creatinine Est Cr Clr Drug Dosing Est GFR ( Amer) Est GFR (Non-Af Amer) BUN/Creatinine Ratio Glucose Estimat Average Glucose Hemoglobin A1c Calcium Total Bilirubin AST ALT Alkaline Phosphatase Troponin I 0.017 < 0.015 C-Reactive Protein NT-Pro-B Natriuret Pep Total Protein Albumin Globulin Albumin/Globulin Ratio Triglycerides Cholesterol LDL Cholesterol, Calc VLDL Cholesterol, Calc HDL Cholesterol Cholesterol/HDL Ratio TSH Urine Color Urine Appearance Urine pH Ur Specific [place] Urine Protein Urine Glucose (UA) Urine Ketones Urine Blood Urine Nitrite Urine Bilirubin Urine Urobilinogen Ur Leukocyte Esterase POC Ur Test 10/20/19 10/20/19 10/20/19 06:56 06:56 06:56 WBC RBC Hgb Hct MCV MCH MCHC RDW Std Deviation RDW Coeff of Christine Plt Count MPV Immature Gran % (Auto) Neut % (Auto) Lymph % (Auto) [place] % (Auto) Eos % (Auto) Baso % (Auto) Immature Gran # (Auto) Neut # (Auto) Lymph # (Auto) [place] # (Auto) Eos # (Auto) Baso # (Auto) PT INR APTT PTT Ratio Sodium 137 Potassium 3.6 Chloride 106 Carbon Dioxide 28 Anion Gap 3.0 BUN 16 Creatinine 0.80 Est Cr Clr Drug Dosing 92.3 Est GFR ( Amer) 106.9 Est GFR (Non-Af Amer) 92.2 BUN/Creatinine Ratio 19.5 Glucose 91 Estimat Average Glucose 103 Hemoglobin A1c 5.2 Calcium 8.3 L Total Bilirubin 1.2 H AST 14 L ALT 35 Alkaline Phosphatase 94 Troponin I < 0.015 C-Reactive Protein NT-Pro-B Natriuret Pep Total Protein 7.0 Albumin 3.4 Globulin 3.6 Albumin/Globulin Ratio 0.9 Triglycerides 183 H Cholesterol 105 LDL Cholesterol, Calc 44 VLDL Cholesterol, Calc 37 HDL Cholesterol 24 Cholesterol/HDL Ratio 4 TSH 1.910 Urine Color Urine Appearance Urine pH Ur Specific [place] Urine Protein Urine Glucose (UA) Urine Ketones Urine Blood Urine Nitrite Urine Bilirubin Urine Urobilinogen Ur Leukocyte Esterase POC Ur Test Diagnostic Findings Telemetry personally reviewed: Sinus rhythm. No arrhythmia. Echo personally reviewed: Echo 10/20/2019: Normal LV size, wall motion, systolic function. EF 60-65%. Mildly dilated RV with normal systolic function. Mild biatrial dilation. No significant valvular abnormalities. ECG 10/19/2019 at 12:18 p.m.: Sinus rhythm 73 bpm. Nonspecific T-wave abnormality ECG 10/19/2019 at 1600: Sinus rhythm 62 bpm. Nonspecific T-wave abnormality. ECG 10/19/2019 at 10:15 p.m.: Sinus rhythm 68 bpm. Nonspecific T-wave abnormality. Medications Administered Current Inpatient Medications Acetaminophen (Tylenol) 650 mg PO Q4H PRN PRN Reason: pain/fever Stop: 11/18/19 15:35 Last Admin: 10/19/19 21:28 Dose: 650 mg Documented by: Al Hydrox/Mg Hydrox/Simethicone (Maalox) 30 ml PO Q6H PRN PRN Reason: Dyspepsia Stop: 11/18/19 15:35 Amlodipine Besylate (Norvasc) 5 mg PO QPM [facility] Stop: 11/18/19 20:59 Last Admin: 10/19/19 21:01 Dose: 5 mg Documented by: Atorvastatin Calcium (Lipitor) 40 mg PO QPM [facility] Stop: 11/18/19 20:59 Last Admin: 10/19/19 21:00 Dose: 40 mg Documented by: Baclofen (Lioresal) 10 mg PO TID PRN PRN Reason: muscle sapasam Stop: 11/18/19 15:35 Bupropion HCl (Wellbutrin-Xl) 300 mg PO DAILY [facility] Stop: 11/19/19 08:59 Last Admin: 10/20/19 08:34 Dose: 300 mg Documented by: Cyanocobalamin (Vitamin B-12) 1,000 mcg IM Q30D [facility] Stop: 12/18/19 08:59 Enoxaparin Sodium (Lovenox) 40 mg SQ Q24H [facility] Stop: 11/18/19 20:59 Last Admin: 10/19/19 16:43 Dose: 40 mg Documented by: Escitalopram Oxalate (Lexapro Tab) 10 mg PO DAILY [facility] Stop: 11/19/19 08:59 Last Admin: 10/20/19 08:34 Dose: 10 mg Documented by: Ketorolac Tromethamine (Toradol) 15 mg IV Q6H PRN PRN Reason: Pain Stop: 10/24/19 15:35 Last Admin: 10/19/19 16:33 Dose: 15 mg Documented by: Magnesium Hydroxide (Milk Of Magnesia) 30 ml PO Q6H PRN PRN Reason: Constipation Stop: 11/18/19 15:35 Morphine Sulfate (Morphine Sulfate) 1 mg IV ONCE PRN PRN Reason: Headache Stop: 11/02/19 21:16 Last Admin: 10/19/19 21:28 Dose: 1 mg Documented by: Nebivolol (Bystolic) 10 mg PO QPM [facility] Stop: 11/18/19 20:59 Last Admin: 10/19/19 21:00 Dose: 10 mg Documented by: Ondansetron HCl (Zofran) 4 mg IV Q6H PRN PRN Reason: Nausea Stop: 11/18/19 15:35 Last Admin: 10/19/19 19:31 Dose: 4 mg Documented by: Oxycodone/Acetaminophen (Percocet 5mg/325mg) 1 tab PO Q4H PRN PRN Reason: Pain Stop: 11/02/19 15:35 Last Admin: 10/19/19 19:31 Dose: 1 tab Documented by: Polyethylene Glycol (Miralax Powder Packet) 17 gm PO DAILY PRN PRN Reason: Constipation Stop: 11/18/19 15:35 PG Care Time/CCT Total # of Minutes Spent Total Time Spent with Patient: Total time spent is greater than 50% in coordination of care (as documented) at patient's floor/unit and/or counseling patient: (1) Back pain, thoracic Back pain laterality: unspecified Chronicity: unspecified Qualified Code(s): M54.6 - Pain in thoracic spine
--- NOTE | 2019-10-23 08:43 | Discharge Summary ---
Date of Service October 20, 2019 Admission HPI Per Admitting Provider Patient is a 39 years old female with a past medical history of hypertension, hyperlipidemia, anxiety who presents to the emergency room with a complaint of chest pain that woke her up from sleep last night and it started at her right shoulder extended to her left shoulder and then ended up between 2 blades and her left hand was numb. Patient said that pain was worsening and continued for 30 minutes. Patient said pain recovered and she felt fine after that. Patient did not try anything to relieve her pain. This morning patient came to the emergency room to be checked. Patient reports that she had thrombosis palliative therapy of the superficial veins of the left lower extremity approximately 1 week ago and she was worried that this could be associated with it. Patient reports tolerating procedure well. She reports some bruising of the left lower extremities at the medial aspect. Patient denies fever, chills, abdominal pain, frequency, urgency, hematuria, dysuria, syncope or near syncope. Labs are reviewed: WBC is 12.02, hemoglobin 13.9, hematocrit 41.3, platelets 298. PT 10.3, INR 1, APTT 23.5, sodium 140, potassium 3.8, chloride 108, BUN 11, creatinine 0.78, GFR 95.1, calcium 9.5 AST 15, ALT 42 troponin 0.026, urine analysis negative, urine test negative. Her CTA of the chest: No pulmonary emboli identified, no acute findings within the chest, no pericardial effusion, no pulmonary nodules. Mild subpleural groundglass opacity may represent atelectasis. DVT ultrasound shows no evidence of deep venous thrombosis DVT in the left lower extremity. Thrombosed superficial veins within the left calf which is likely postsurgical. Decision was made to admit patient for observation at PCU on telemetry and further evaluation of acute versus atypical chest pain versus acute coronary syndrome. Principal Diagnosis chest pain Discharge Exam Constitutional: WD/WN, vitals as above well developed and + obese Eyes: PERRL, conjunctivae normal, anicteric sclerae ENMT: external ear and nose normal, oropharynx normal Neck: trachea midline, no thyromegaly Positive tenderness and pain over the right trapezius. Patient has painful trigger points bilateral left and right down to the neck more pronounced on the right. Respiratory: normal respiratory effort, lungs clear to auscultation Cardiovascular: RRR, no murmur, no edema Gastrointestinal (Abdomen): normal bowel sounds, soft, nontender, no hepatosplenomegaly Musculoskeletal: no cyanosis or clubbing, extremities motor strength 5/5 Patient has trigger points especially right side and the back of the neck. Skin: no rashes, warm and dry Bruising over the left lower extremity below the calf on the medial side where patient had sclerotherapy. Neurologic: patellar DTR's 2+ bilat, sensation intact Psychiatric: A+Ox3, euthymic affect Lymphatic: no cervical or axillary lymphadenopathy Discharge Data Allergies Allergy/AdvReac Type Severity Reaction Status Date / Time No Known Allergies Allergy Unverified 10/19/19 14:06 Consultations 10/19/19 13:56 ED Decision to Admit Stat 10/20/19 08:17 Consult Cardiology Routine Ordered Studies 10/19/19 12:32 CT angio chest PE protocol Stat 10/19/19 13:05 US venous doppler LE LT Stat Hospital Course (1) Chest pain: Admit Atypical chest pain: Her chest pain is not consistent with ischemic heart disease. She has had pain for many hours consistently with negative troponins, without ECG or echo abnormalities to suggest acute ischemia. She has had stress echo earlier this year by her primary logger driving horses for similar symptoms, and she reports that it was unremarkable. Her chest discomfort resolved with Ativan and in the past, she was told that her chest pain was due to anxiety. Further evaluation/treatment as per primary service. (2) Osteoarthritis: Cannot exclude osteoarthritis of the neck versus right versus left shoulder as a cause of pain. Spondylosis of the spine cannot be excluded. 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 Less likely carpal tunnel syndrome. X-rays of the neck, right shoulder left shoulder pending. CRP pending Pain management with Toradol 15mg IV every 6 hours as needed for pain. Percocet 5/325 mg every 4 hours as needed for pain. Baclofen 10 mg 3 times daily as needed for muscle spasm. (3) Hypertension: Blood pressure is well controlled in the ER. Continue home medicine amlodipine 5 mg p.o. every afternoon, Bystolic 10 mg p.o. every afternoon. Continue monitoring every 4 hours (4) Hyperlipidemia: Continue home dose of atorvastatin 40 mg p.o. every afternoon. (5) Obesity (BMI 30.0-34.9): Patient advised to lose at least 32 pounds pounds in order to be below overweight line for her BMI. Patient advised to start healthy diet, exercises, dietary consulted, should join groups or weight watchers to help her to control her weight and to lose some. (6) Varicose vein of leg: Appears to be stable at this time. No intervention needed. (7) Metabolic syndrome: As discussed above. (8) Anxiety: Appears to be stable. Continue home dose of escitalopram 10 mg p.o. daily, bupropion 300 mg p.o. daily. Total Time Total Time Spent Total Time Spent (In Minutes): 32 Total Time Includes: Examination of the Patient, Discharge Planning and Medication Reconciliation Discharge Plan Discharge Items Patient Disposition: Home - Self-Care Reason For Visit: BACK PAIN Discharge Diagnosis: chest pain Activity: Resume your previous activity Non-emergency contact: Primary Care Provider Call non-emergency contact if: you have any medication questions Follow-up/Referrals: PCP,NO [Primary Care Provider] - Diet: Regular Addtl Attending Provider Instructions: You have been hospitalized to rule out cardiac chest pain. During your stay at [facility], we had you evaluated by a logger driving horses who determined that this does not appear to be cardiac in nature. Discharge instructions will include directions for any medications you should take after leaving the hospital. Please make sure you see your Primary Care Provider as part of your follow up plan. Do not mix alcohol with xanax as this can cause respiratory depression. Recommend followup with PCP once you return to [place]. Pending Studies at Discharge: No Stand-Alone Forms: My [facility], Smoking Cessation Medications and DC Order Prescriptions: New alprazolam [Xanax] 0.25 mg tablet 0.25 mg PO HS PRN (Reason: anxiety/sleep) Qty: 10 RF: 0 Continued atorvastatin 40 mg tablet 40 mg PO QPM RF: 0 amlodipine 5 mg tablet 5 mg PO QPM RF: 0 cyanocobalamin (vitamin B-12) 1,000 mcg/mL solution 1,000 mcg IM MONTHLY RF: 0 ibuprofen [Advil] 200 mg Tablet 400 mg PO Q6H PRN (Reason: Pain) RF: 0 escitalopram oxalate 10 mg tablet 10 mg PO DAILY RF: 0 bupropion HCl 300 mg tablet extended release 24 hr 300 mg PO DAILY RF: 0 Bystolic 10 mg tablet 10 mg PO QPM RF: 0 Discharge Orders: Discharge Order (Routine); Ordered 10/20/19 Ordered By: Darinel Puentes Admission Data Admit Date/Time: 10/19/19 14:57 Attending Provider: Darinel Puentes Admit Provider: Huy Wilson Primary Care Provider: PCP,NO Other Providers: Huy Wilson ; Roman Bowman Other Interventions: Discharge Summary Assessment (RN) Last Done: 10/20/19 14:30 DC Date/Time DO NOT enter until pt leaves facility: 10/20/19 14:38
[2019-11-18] MEDS ORDERED: CYANOCOBALAMIN 1000 MCG/ML VIAL IM SCH (09:00)
== END 2019-10-20 14:38 | disposition home or self-care (01) ==
LOC: 2S 11:48 → ED 11:48 → SUATTDRO 14:57 → 2S 15:15